=== PATIENT | male | born 1975 | race Asian ===

== ENCOUNTER 2022-07-16 08:44 | Outpatient (CLI) | payer OTHER | END 2022-07-16 08:45 | disposition home or self-care (01) | LOC: BICRAD 08:44 | DX: M54.2 Cervicalgia (principal); M47.812 Spondylosis without myelopathy or radiculopathy, cervical region | CPT/HCPCS: 72040 ==

== ENCOUNTER 2023-08-14 13:28 | Outpatient (CLI) | payer OTHER | END 2023-08-14 13:29 | disposition home or self-care (01) | LOC: BICRAD 13:28 | PROVIDERS: ATTEND Family Medicine | DX: M54.50 Low back pain, unspecified (principal); M47.816 Spondylosis without myelopathy or radiculopathy, lumbar region | CPT/HCPCS: 72100 ==